=== PATIENT | male | born 1955 | race Caucasian/White ===

== ENCOUNTER 2018-11-27 08:27 | Day surgery (SDC) | payer MEDICARE, OTHER ==
[~2018-11-27 08:27] MED LIST: Metoclopramide 10 MG/2 ML SDV IV PRN; Sodium Chloride 0.9% 1,000 ML IV SCH
[2018-11-27] MEDS ORDERED: Propofol 1,000 MG/100 ML SDV ONE (11:01)
--- NOTE | 2018-11-27 15:00 | OR ---
DATE OF OPERATION: 11/27/2018 PREOPERATIVE DIAGNOSIS: Screening colonoscopy. POSTOPERATIVE DIAGNOSIS: Screening colonoscopy. PROCEDURE: Screening colonoscopy. ANESTHESIA: MAC. ESTIMATED BLOOD LOSS: None. COMPLICATIONS: None. INDICATION FOR THE PROCEDURE: The patient is a 63-year-old male who last had a colonoscopy 10 years ago was normal. He denies any change in bowel habits since that time. DESCRIPTION OF PROCEDURE: Informed consent was obtained with the patient. The patient was taken to the operating room and placed on the table in the left lateral decubitus position. Monitored anesthesia care was administered. Digital rectal exam was performed and was normal. Colonoscope was then advanced through the anus directed toward the cecum. Cecum was reached and identified by appendiceal orifice and ileocecal valve. Terminal ileum was intubated and was normal. Colonoscope was then slowly withdrawn. No masses. No polyps. No areas of ischemia or inflammation. No AV malformations identified. He did have mild diverticulosis in the sigmoid colon, otherwise normal. Retroflexion performed in the rectum was also otherwise unremarkable. Colonoscope was then withdrawn. FINDINGS: Sigmoid diverticulosis. RECOMMENDATIONS: Would recommend increase water and high-fiber diet. Would also recommend repeat screening colonoscopy in 10 years. MARTITA/AUGIE /[id number]
== END 2018-11-27 12:30 | disposition home or self-care (01) ==
LOC: LB.SDS 08:27
PROVIDERS: ATTEND Surgery
DX: Z12.11 Encounter for screening for malignant neoplasm of colon (principal); K57.30 Diverticulosis of large intestine without perforation or abscess without bleeding; I10 Essential (primary) hypertension; G47.30 Sleep apnea, unspecified; Z79.899 Other long term (current) drug therapy; Z99.89 Dependence on other enabling machines and devices
CPT/HCPCS: G0121; J2704; J7030

== ENCOUNTER 2020-07-23 09:02 | Emergency (ER) | payer MEDICARE ==
--- NOTE | 2020-07-23 10:22 | EDM.PDOC ---
ED HPI GENERAL MEDICAL PROBLEM - General Stated Complaint: FISH HOOK Time Seen by Provider: 07/23/20 09:45 Source of Information: Reports: Patient History Limitations: Reports: No Limitations - History of Present Illness INITIAL COMMENTS - FREE TEXT/NARRATIVE: 65 year old male presented with fish hook penetrated to anterolateral aspect of left hook x for the last few hours .The pt tired to remove the hook himself but he was not successful. denies fever,N/V ,headache ,chest pain ,shortness of breath ,abd pain Onset: Today, Sudden (7) Location: Reports: Lower Extremity, Left Quality: Reports: Dull Improves with: Reports: None Worsens with: Reports: None Associated Symptoms: Reports: No Other Symptoms - Related Data Allergies Allergy/AdvReac Type Severity Reaction Status Date / Time No Known Allergies Allergy Verified 11/27/18 08:44 Home Meds: Home Meds Losartan Potassium 25 mg PO DAILY 11/27/18 [History] Sildenafil Citrate [Sildenafil] 40 mg PO DAILY PRN MDD 90 11/27/18 [History] Simvastatin [Zocor] 40 mg PO BEDTIME 11/27/18 [History] hydroCHLOROthiazide [Hydrochlorothiazide] 25 mg PO DAILY 11/27/18 [History] Past Medical History - Past Surgical History GI Surgical History: Reports: Hernia, Inguinal Social & Family History - Family History Family Medical History: No Pertinent Family History - Caffeine Use Caffeine Use: Reports: Coffee Caffeine Use Comment: 3-4 coffee in a week ED ROS GENERAL - Review of Systems Review Of Systems: See Below Constitutional: Reports: No Symptoms HEENT: Reports: No Symptoms Respiratory: Reports: No Symptoms Cardiovascular: Reports: No Symptoms Endocrine: Reports: No Symptoms GI/Abdominal: Reports: No Symptoms : Reports: No Symptoms Musculoskeletal: Reports: No Symptoms Skin: Reports: No Symptoms Neurological: Reports: No Symptoms ED EXAM, GENERAL - Physical Exam Exam: See Below Exam Limited By: No Limitations General Appearance: Alert, WD/WN, No Apparent Distress Head: Atraumatic, Normocephalic Respiratory/Chest: No Respiratory Distress, Lungs Clear, Normal Breath Sounds, No Accessory Muscle Use, Chest Non-Tender Cardiovascular: Normal Peripheral Pulses, Regular Rate, Rhythm, No Edema, No Gallop, No JVD, No Murmur, No Rub Neurological: Alert, Oriented, CN II-XII Intact (fish hook tip penetrated the dori lateral aspect of left thigh -) ED GENERAL MEDICAL PROCEDURES - Additional/Other Procedure(s) Other (Free Text) Procedure(s): Fish hook removal area was cleaned with alcohol swab 2ml of lidocaine infiltrated around embedded fish hook hook is taken out with a missile mechanic, area clean again . dressing done Course - Vital Signs Text/Narrative:: vitals monitored area was cleaned with alcohol swab 2ml of lidocaine with epinephrine infiltrated. Hook is pulled out with missile mechanic area cleaned dressing done Inj TD given discuss with him about possibility of infection return to clinic if there is some infection Disposition: The patient discharge home & walked out in stable conditions. Departure - Departure Time of Disposition: 10:00 Disposition: Home, Self-Care 01 Condition: Good Clinical Impression: Fish hook injury of left lower leg - Discharge Information *PRESCRIPTION DRUG MONITORING PROGRAM REVIEWED*: No *COPY OF PRESCRIPTION DRUG MONITORING REPORT IN PATIENT TERI: No Instructions: VIS, Tetanus, Diphtheria (Td); Tetanus, Diphtheria, Pertussis (Tdap) - CDC, Puncture Wound, Nsat-hs-Sody Referrals: PCP,None [Primary Care Provider] - - Problem List & Annotations (1) Fish hook injury of left lower leg SNOMED Code(s): 030240309 Code(s): S89.92XA - UNSPECIFIED INJURY OF LEFT LOWER LEG, INITIAL ENCOUNTER Status: Acute Priority: Medium Current Visit: No Onset Date: ~07/23/20 Qualifiers: Encounter type: initial encounter Qualified Code(s): S89.92XA - Unspecified injury of left lower leg, initial encounter
[2020-07-23] MEDS ORDERED: Diphtheria/Tetanus Toxoids,Adult (Td) 0.5 ML SDV IM ONE (15:09)
== END 2020-07-23 10:05 | disposition home or self-care (01) ==
LOC: LB.ED 09:02
DX: S80.852A Superficial foreign body, left lower leg, initial encounter (principal); Z23 Encounter for immunization; W45.8XXA Other foreign body or object entering through skin, initial encounter
CPT/HCPCS: 10120; 90471; 90714; 99283

== ENCOUNTER 2020-11-22 09:40 | Emergency (ER) | payer MEDICARE ==
--- NOTE | 2020-11-22 10:23 | EDM.PDOC ---
ED HPI GENERAL MEDICAL PROBLEM - General Chief Complaint: Syncope Stated Complaint: SYNCOPE Time Seen by Provider: 11/22/20 10:00 Source of Information: Reports: Patient History Limitations: Reports: No Limitations - History of Present Illness INITIAL COMMENTS - FREE TEXT/NARRATIVE: patient presented to the ER with due to an episode of syncope earlier today. He reports that it happened at the end of his physical therapy session. He was sitting down, and felt a little dizzy and sweaty when he tried standing up. No CP or palpitations. Per report, he had a very brief episode of syncope that lasted for a couple seconds before he returned to his baseline. Patient admits that this occurred a couple weeks ago as well, but been good since then. Denies any CP at the current time. no h/o DM, but h/o HTN on HCLZ and losartan. Reports he ate a toast and had some coffee this morning. Onset: Sudden Duration: Minutes: (30) - Related Data Allergies Allergy/AdvReac Type Severity Reaction Status Date / Time No Known Allergies Allergy Verified 11/22/20 10:11 Home Meds: Home Meds Losartan Potassium 25 mg PO DAILY 11/27/18 [History] Sildenafil Citrate [Sildenafil] 40 mg PO DAILY PRN MDD 90 11/27/18 [History] Simvastatin [Zocor] 40 mg PO BEDTIME 11/27/18 [History] hydroCHLOROthiazide [Hydrochlorothiazide] 25 mg PO DAILY 11/27/18 [History] traMADol [Ultram] 50 mg PO Q6H PRN 11/22/20 [History] Past Medical History - Past Surgical History GI Surgical History: Reports: Hernia, Inguinal Social & Family History - Family History Family Medical History: No Pertinent Family History - Caffeine Use Caffeine Use: Reports: Coffee Caffeine Use Comment: 3-4 coffee in a week ED ROS GENERAL - Review of Systems Review Of Systems: See Below Constitutional: Reports: No Symptoms HEENT: Reports: No Symptoms Respiratory: Reports: No Symptoms Cardiovascular: Reports: Syncope. Denies: Chest Pain GI/Abdominal: Reports: No Symptoms : Reports: No Symptoms Musculoskeletal: Reports: No Symptoms Skin: Reports: No Symptoms Neurological: Reports: No Symptoms Psychiatric: Reports: No Symptoms ED EXAM, DIZZINESS - Physical Exam Exam: See Below Exam Limited By: No Limitations General Appearance: Alert, WD/WN, No Apparent Distress Eye Exam: Bilateral Eye: EOMI, PERRL Nose: Normal Inspection Respiratory/Chest: No Respiratory Distress, Lungs Clear Cardiovascular: Normal Peripheral Pulses, Regular Rate, Rhythm, No Edema GI/Abdominal: Normal Bowel Sounds, Soft, Non-Tender Neurological: Alert, Normal Mood/Affect, Normal Gait, No Motor/Sensory Deficits, Oriented x 3 Back Exam: Normal Inspection, Full Range of Motion Psychiatric: Normal Affect, Normal Mood #1 Interpretation EKG Date: 11/22/20 Rhythm: NSR Elida: Normal P-Wave: Present QRS: Normal ST-T: Normal QT: Normal Course - Vital Signs Last Recorded V/S: Last Vital Signs Temp 36.2 C 11/22/20 09:40 Pulse 70 11/22/20 09:40 Resp 16 11/22/20 09:40 BP 122/70 11/22/20 09:40 Pulse Ox 96 11/22/20 09:40 - Orders/Labs/Meds Orders: Active Orders 24 hr Category Date Time Status EKG Documentation Completion [RC] ASDIRECTED Care 11/22/20 10:04 Active Labs: Laboratory Tests 11/22/20 11/22/20 11/22/20 Range/Units 10:10 10:15 10:15 WBC 11.9 H D (4.0-11.0) K/uL RBC 4.04 L (4.50-6.50) M/uL Hgb 12.6 L (13.0-18.0) g/dL Hct 36.6 L (40.0-54.0) % MCV 91 (76-96) fL MCH 31.2 (27.0-32.0) pg MCHC 34.4 (31.0-35.0) g/dL RDW 12.2 (11.0-16.0) % Plt Count 410 H D (150-400) K/uL MPV 9.1 (6.0-10.0) fL Sodium 139 (136-145) mmol/L Potassium 3.6 (3.5-5.1) mmol/L Chloride 101 (98-107) mmol/L Carbon Dioxide 30.7 D (21.0-32.0) mmol/L Anion Gap 10.9 (5.0-15.0) mmol/L BUN 25 D (8-26) mg/dL Creatinine 1.26 (0.70-1.30) mg/dL Est Cr Clr Drug Dosing 56.89 mL/min Estimated GFR (MDRD) 57 L (>60) MLS/MIN BUN/Creatinine Ratio 19.8 (6-25) Glucose 118 H (74-100) mg/dL Calcium 8.8 (8.5-10.1) mg/dL Phosphorus 3.0 (2.5-4.9) mg/dL Magnesium 1.9 (1.8-2.4) mg/dL Troponin I < 0.017 (0.000-0.060) ng/mL - Re-Assessments/Exams Free Text/Narrative Re-Assessment/Exam: 11/22/20 10:22 WAS CONNECTED A MONITOR Bedside blood glucose check 117 VS WNL labs were ordered including trop, CBC, BMP and electrolytes. 11/22/20 10:59 Hgb was noted to be 12.5 - probably post-op related. Departure - Departure Time of Disposition: 11:00 Disposition: Home, Self-Care 01 Condition: Good Clinical Impression: Pre-syncope, Mild anemia - Discharge Information *PRESCRIPTION DRUG MONITORING PROGRAM REVIEWED*: Not Applicable *COPY OF PRESCRIPTION DRUG MONITORING REPORT IN PATIENT TERI: Not Applicable Instructions: Near-Syncope Referrals: PCP,None [Primary Care Provider] - Forms: ED Department Discharge Sepsis Event Note (ED) - Focused Exam Vital Signs: Vital Signs Temp Pulse Resp BP Pulse Ox 11/22/20 09:40 36.2 C 70 16 122/70 96 - Problem List & Annotations (1) Mild anemia SNOMED Code(s): 798693840 Code(s): D64.9 - ANEMIA, UNSPECIFIED Status: Acute Priority: Low Current Visit: Yes (2) Pre-syncope SNOMED Code(s): 826018668 Code(s): R55 - SYNCOPE AND COLLAPSE Status: Acute Priority: Low Current Visit: Yes - Problem List Review Problem List Initiated/Reviewed/Updated: Yes - My Orders Last 24 Hours: My Active Orders 11/22/20 10:04 EKG Documentation Completion [RC] ASDIRECTED - Assessment/Plan Last 24 Hours: My Active Orders 11/22/20 10:04 EKG Documentation Completion [RC] ASDIRECTED Plan: - recommend to increase fluids intake - drink a bottle of water first thing in the morning - recommend to have a good breakfast before your next PT session - recommend to consume iron-rich food, and to take multi-vitamin supplements - return to the ER if any concerns or recurrence of symptoms - follow up with your PCP in 1-2 weeks for blood test recheck
== END 2020-11-22 11:10 | disposition home or self-care (01) ==
LOC: LB.ED 09:50
DX: R55 Syncope and collapse (principal); D64.9 Anemia, unspecified; I10 Essential (primary) hypertension; Z79.899 Other long term (current) drug therapy
CPT/HCPCS: 36415; 80048; 82947; 83735; 84100; 84484; 85027; 93005; 99282; 99284-25